=== PATIENT | male | born 1935 | race Caucasian/White ===

== ENCOUNTER 2019-06-06 15:50 | Outpatient (CLI) | payer MEDICARE, SELFPAY ==
[2019-06-06 16:27] LABS: INR 1.9 (0.9-1.1); Prothrombin Time 19.2 sec (9.3-11.0)
== END 2019-06-06 16:10 ==
DX: I48.91 Unspecified atrial fibrillation (principal); Z79.01 Long term (current) use of anticoagulants
CPT/HCPCS: 36415; 85610